=== PATIENT | male | born 1950 | race Hispanic/Latino ===

== ENCOUNTER 2019-03-29 00:43 | Emergency (ER) | payer SELFPAY ==
[~2019-03-29] VITALS: Ht 157.5 cm; Wt 68.2 kg
[2019-03-29] MEDS ORDERED: METF500T13 PO (00:52)
--- NOTE | 2019-03-29 01:55 | REPVR ---
EXAM: CT Maxillofacial Without Contrast EXAM DATE/TIME: 03/29/2019 1:37 AM CLINICAL HISTORY: 69 years old, male; Injury or trauma; Fall; Initial encounter; Blunt trauma (contusions or hematomas); Nose; Additional info: Tr TECHNIQUE: Imaging protocol: Computed tomography images of the face without contrast. Radiation optimization: All CT scans at this facility use at least one of these dose optimization techniques: automated exposure control; mA and/or kV adjustment per patient size (includes targeted exams where dose is matched to clinical indication); or iterative reconstruction. COMPARISON: No relevant prior studies available. FINDINGS: Paranasal facial soft tissue edema/hematoma is present. Acute nasal bone base fractures, nondisplaced. No nasal septal fracture deformity Mandible is intact and the TMJ's align normally. Maxilla, hard palate and pterygoid plates are intact. Zygomaticomaxillary complexes and zygomatic arches appear normal. Paranasal sinuses show no acute fracture. Paranasal sinuses show no abnormal opacification. Mastoid air cells are normally aerated. No acute orbital fracture. Orbital soft tissues are unremarkable. Visualized skull base structures are unremarkable. Posterior nasopharynx soft tissues are symmetric. IMPRESSION: Acute nasal bone base fractures, nondisplaced, with overlying paranasal soft tissue swelling. No other acute facial fracture Electronically signed by: Huy Garber On 03/29/2019 01:54:43 AM
--- NOTE | 2019-03-29 01:59 | REPVR ---
EXAM: CT Head Without Contrast EXAM DATE/TIME: 03/29/2019 1:37 AM CLINICAL HISTORY: 69 years old, male; Injury or trauma; Fall; Initial encounter; Blunt trauma (contusions or hematomas); Consciousness not specified; Additional info: Tr TECHNIQUE: Imaging protocol: Computed tomography images of the head without contrast. Radiation optimization: All CT scans at this facility use at least one of these dose optimization techniques: automated exposure control; mA and/or kV adjustment per patient size (includes targeted exams where dose is matched to clinical indication); or iterative reconstruction. COMPARISON: No relevant prior studies available. FINDINGS: Brain: No intracranial mass, mass effect or midline shift. No acute intracranial hemorrhage. No CT evidence of acute cortical infarct. Ventricles: Ventricles, cisterns, and sulci are normal in size for age. Bones/joints: No calvarial fracture or destructive process. Sinuses: Imaged paranasal sinuses are clear. Mastoid air cells: Mastoid air cells are normally aerated. Orbits: Imaged orbits are unremarkable. Soft tissues: No focal extracranial soft tissue swelling. IMPRESSION: No acute or concerning focal intracranial abnormality. Electronically signed by: Huy Garber On 03/29/2019 01:59:16 AM
[2019-03-29] MEDS ORDERED: TETANUS/DIPHTHERIA TOX ADSORB ADULT 0.5ML SYR/VIAL (90714) IM ONE (02:00)
--- NOTE | 2019-03-29 02:01 | REPVR ---
EXAM: CT Cervical Spine Without Contrast EXAM DATE/TIME: 03/29/2019 1:37 AM CLINICAL HISTORY: 69 years old, male; Injury or trauma; Fall; Initial encounter; Blunt trauma; Additional info: Tr TECHNIQUE: Imaging protocol: Computed tomography images of the cervical spine without contrast. Radiation optimization: All CT scans at this facility use at least one of these dose optimization techniques: automated exposure control; mA and/or kV adjustment per patient size (includes targeted exams where dose is matched to clinical indication); or iterative reconstruction. COMPARISON: No relevant prior studies available. FINDINGS: No traumatic segmental malalignment of cervical spine or craniocervical junction. Vertebral body height is maintained at all levels. No acute fracture. No destructive or blastic cervical spine osseous lesion. Intervertebral disc height is decreased at multiple levels, with typical degenerative pattern and associated endplate, articular pillar and uncovertebral spurs. Prevertebral soft tissues demonstrate no asymmetry. No concerning abnormality of the imaged lung apices. IMPRESSION: No acute fracture or traumatic subluxation of the cervical spine. Multilevel degenerative disc and articular pillar arthropathy. Electronically signed by: Huy Garber On 03/29/2019 02:00:58 AM
[2019-03-29 06:18] VITALS: BP 152/84
== END 2019-03-29 06:19 | disposition home or self-care (01) ==
LOC: M ED 00:43
DX: S02.2XXA Fracture of nasal bones, initial encounter for closed fracture (principal); S01.81XA Laceration without foreign body of other part of head, initial encounter; W18.39XA Other fall on same level, initial encounter; Y92.018 Other place in single-family (private) house as the place of occurrence of the external cause; F10.129 Alcohol abuse with intoxication, unspecified; E11.9 Type 2 diabetes mellitus without complications; Z79.84 Long term (current) use of oral hypoglycemic drugs